=== PATIENT | female | born 1960 | race Caucasian/White ===

== ENCOUNTER → 2022-03-10 | Outpatient (CLI) | payer OTHER ==
[2022-03-10 11:01] LABS: HEMOGLOBIN 15.7 gm/dl (12.3-15.3); RED BLOOD COUNT 5.01 M/UL (4.00-5.10); WHITE BLOOD COUNT 5.9 K/UL (4.5-11.0)
[2022-03-10 11:31] LABS: BUN/CREATININE RATIO 25 (0-10)
== END ==
LOC: CT 10:36
PROVIDERS: Internal Medicine Hematology & Oncology
DX: C34.11 Malignant neoplasm of upper lobe, right bronchus or lung (principal); R91.8 Other nonspecific abnormal finding of lung field
CPT/HCPCS: 71250; 80053; 83615; 85025